=== PATIENT | female | born 1990 | race Caucasian/White ===

== ENCOUNTER 2018-03-21 20:59 | Emergency (ER) | END 2018-03-22 00:23 | disposition home or self-care (01) ==

== ENCOUNTER 2018-05-18 07:01 | Day surgery (SDC) | END 2018-05-18 14:32 | disposition home or self-care (01) ==

== ENCOUNTER 2018-05-20 15:39 | Emergency (ER) | END 2018-05-21 01:15 | disposition home or self-care (01) ==